=== PATIENT | female | born 1955 | race Caucasian/White ===

== ENCOUNTER 2019-01-28 20:40 | Inpatient (IN) | payer BC, OTHER ==
[~2019-01-28] VITALS: Ht 157.5 cm; Wt 86.7 kg
--- OUTSIDE RECORDS SUMMARY | 2019-01-28 20:44 | XMS REPORT ---
Author Author MARIYA JORDAN Organization e[employer] Address Unknown Phone Unavailable Care Team Providers Care City Carrier Name Role Phone MARIYA JORDAN CP Unavailable Allergies No Known Allergies Problems Problem Type Condition ICD-9 Code Onset Dates Condition Status Problem Dysuria 788.1 Active Problem Hypertension 401.9 Active Problem Well woman exam with routine gynecological exam V72.31 Active Assessment Vaginal itching 698.1 Active Problem Diabetes type 2, uncontrolled 250.02 Active Problem Hyperlipidemia 272.4 Active Medications Medication Code System Code Instructions Start Date End Date Status Dosage Nystatin [facility] [address]-12 [id number] UNIT/GM Externally Twice a day Apr 20, 2015 1 application to affected area Results No Known Results Summary Purpose eClinicalWorks Submission
--- OUTSIDE RECORDS SUMMARY | 2019-01-28 20:44 | XMS REPORT ---
Author Author MARIYA JORDAN Organization [employer] Address Unknown Phone Unavailable Care Team Providers Care Heel Sander Rubber Name Role Phone MARIYA JORDAN CP Unavailable Allergies No Known Allergies Problems Problem Type Condition ICD-9 Code Onset Dates Condition Status Problem Dysuria 788.1 Active Problem Hypertension 401.9 Active Problem Well woman exam with routine gynecological exam V72.31 Active Problem Diabetes type 2, uncontrolled 250.02 Active Problem Hyperlipidemia 272.4 Active Medications No Known Medications Results No Known Results Summary Purpose eClinicalWorks Submission
--- OUTSIDE RECORDS SUMMARY | 2019-01-28 20:44 | XMS REPORT ---
Author Author MARIYA JORDAN [facility] eClinicalWorks Address Unknown Phone Unavailable Care Team Providers Care Com Writer Name Role Phone MARIYA JORDAN CP Unavailable Allergies, Adverse Reactions, Alerts Substance Reaction Event Type Sulfamethoxazole-Trimethoprim Info Not Available Drug Allergy Problems Problem Type Condition ICD-9 Code Onset Dates Condition Status Assessment Diabetes type 2, uncontrolled 250.02 Active Assessment Well woman exam with routine gynecological exam V72.31 Active Problem Dysuria 788.1 Active Problem Hypertension 401.9 Active Problem Well woman exam with routine gynecological exam V72.31 Active Assessment Hypertension 401.9 Active Assessment Hyperlipidemia 272.4 Active Problem Diabetes type 2, uncontrolled 250.02 Active Problem Hyperlipidemia 272.4 Active Medications No Known Medications Procedures Procedure Coding System Code Date SPECIMEN HANDLING CPT-4 81928 Apr 15, 2015 TRICHOMONAS VAGIN, DIR PROBE CPT-4 95123 Apr 15, 2015 GLYCATED HEMOGLOBIN TEST CPT-4 23918 Apr 15, 2015 CULTURE, BACTERIA, OTHER CPT-4 99560 Apr 15, 2015 No Charge CPT-4 56841 Apr 15, 2015 Office Visit, Est Pt., Level 4 CPT-4 38683 Apr 15, 2015 Vital Signs Date/Time: Apr 15, 2015 Temperature 97.4 F Weight 169.8 lbs Height 62 in BMI 31.05 Index Blood Pressure Diastolic 68 mmHg Blood Pressure Systolic 140 mmHg Cardiac Monitoring Heart Rate 100 bpm Results Name Result Date Reference Range Unit Abnormality Flag A1C (IN HOUSE) Summary Purpose eClinicalWorks Submission
--- OUTSIDE RECORDS SUMMARY | 2019-01-28 20:44 | XMS REPORT ---
Author MARIYA Harris Organization [employer] Address Unknown Phone Unavailable Care Team Providers Care Shoe Reconditioner Name Role Phone MARIYA JORDAN CP Unavailable Allergies No Known Allergies Problems Problem Type Condition ICD-9 Code Onset Dates Condition Status Problem Hypertension 401.9 Active Problem Diabetes type 2, uncontrolled 250.02 Active Problem Dysuria 788.1 Active Problem Hyperlipidemia 272.4 Active Medications Medication Code System Code Instructions Start Date End Date Status Dosage Diflucan [facility] [address]-38 150 MG Orally Mar 27, 2015 1 tablet Results No Known Results Summary Purpose eClinicalWorks Submission
--- OUTSIDE RECORDS SUMMARY | 2019-01-28 20:44 | XMS REPORT ---
Author MARIYA Harris Organization [employer] Address Unknown Phone Unavailable Care Team Providers Care Reinsurance Claims Analyst Name Role Phone MARIYA JORDAN CP Unavailable Allergies No Known Allergies Problems Problem Type Condition Code Onset Dates Condition Status Problem Dysuria 788.1 Active Problem Hypertension 401.9 Active Problem Well woman exam with routine gynecological exam V72.31 Active Problem Diabetes type 2, uncontrolled 250.02 Active Problem Hyperlipidemia 272.4 Active Medications No Known Medications Results No Known Results Summary Purpose eClinicalWorks Submission
--- OUTSIDE RECORDS SUMMARY | 2019-01-28 20:44 | XMS REPORT ---
Author MARIYA Harris Organization [employer] Address Unknown Phone Unavailable Care Team Providers Care Fisher Pound Net Or Trap Name Role Phone MARIYA JORDAN CP Unavailable Allergies No Known Allergies Problems Problem Type Condition ICD-9 Code Onset Dates Condition Status Problem Hypertension 401.9 Active Problem Diabetes type 2, uncontrolled 250.02 Active Problem Dysuria 788.1 Active Problem Hyperlipidemia 272.4 Active Medications Medication Code System Code Instructions Start Date End Date Status Dosage Diflucan [facility] [address]-01 150 MG Orally every 72 hours Mar 27, 2015 1 tablet Results No Known Results Summary Purpose eClinicalWorks Submission
--- OUTSIDE RECORDS SUMMARY | 2019-01-28 20:45 | XMS REPORT ---
Author Author MARIYA JORDAN [facility] eClinicalWorks Address Unknown Phone Unavailable Care Team Providers Care Aviation Support Equipment Repairer Name Role Phone MARIYA JORDAN CP Unavailable Allergies No Known Allergies Problems Problem Type Condition Code Onset Dates Condition Status Problem Dysuria 788.1 Active Problem Hypertension 401.9 Active Problem Well woman exam with routine gynecological exam V72.31 Active Problem Diabetes type 2, uncontrolled 250.02 Active Problem Hyperlipidemia 272.4 Active Medications Medication Code System Code Instructions Start Date End Date Status Dosage GlyBURIDE [facility] [address]-92 5 MG Orally Once a day Apr 21, 2015 1 tablet Results No Known Results Summary Purpose eClinicalWorks Submission
--- OUTSIDE RECORDS SUMMARY | 2019-01-28 20:45 | XMS REPORT ---
Author Author MARIYA JORDAN [facility] eClinicalWorks Address Unknown Phone Unavailable Care Team Providers Care Lanolin Plant Operator Name Role Phone MARIYA JORDAN CP Unavailable Allergies No Known Allergies Problems Problem Type Condition ICD-9 Code Onset Dates Condition Status Problem Hypertension 401.9 Active Problem Diabetes type 2, uncontrolled 250.02 Active Problem Dysuria 788.1 Active Problem Hyperlipidemia 272.4 Active Medications No Known Medications Results No Known Results Summary Purpose eClinicalWorks Submission
--- NOTE | 2019-01-28 21:00 | NUR ---
Pt amb to restroom, with ed staff stand by assist, to obtain urine sample.
--- NOTE | 2019-01-28 21:13 | NUR ---
Pt reports she has a cyst noted to lt buttocks which is now bleeding. Pt reports for "past several days" it has been oozing and is now bleeding. Wound culture obtained by Dr. Hatch @[phone].
[2019-01-28 21:17] LABS: BILIRUBIN,URINE NEGATIVE (NEGATIVE); CLARITY,URINE VERY CLOUDY; COLOR,URINE YELLOW; GLUCOSE, URINE (UA) NEGATIVE (NEGATIVE); KETONES,URINE NEGATIVE (NEGATIVE); LEUKOCYTE ESTERASE ,URINE 3+ (NEGATIVE); NITRITE,URINE NEGATIVE (NEGATIVE); PH,URINE 5 (5-9); PROTEIN,URINE 2+ (NEGATIVE); UROBILINOGEN,URINE NORMAL (NORMAL)
[2019-01-28] MEDS ORDERED: NS IV 500 ML 500 ML IV ONE (21:19)
[2019-01-28 21:21] LABS: BASOPHILS % (AUTO) 0 % (0-10); EOSINOPHILS # (AUTO) 0.4 10^3/uL (0.0-0.3); EOSINOPHILS % (AUTO) 6 % (0-10); HEMATOCRIT 40 % (35-52); LYMPHOCYTES # (AUTO) 1.5 X 10^3 (1.0-4.0); LYMPHOCYTES % (AUTO) 20 % (12-44); MEAN CORPUSCULAR HEMOGLOBIN 31 PG (25-34); MEAN CORPUSCULAR HGB CONC 33 G/DL (32-36); MEAN CORPUSCULAR VOLUME 94 FL (80-99); MEAN PLATELET VOLUME 10.2 FL (7.4-10.4); MONOCYTES # (AUTO) 0.4 X 10^3 (0.0-1.0); MONOCYTES % (AUTO) 6 % (0-12); NEUTROPHILS # (AUTO) 5.1 X 10^3 (1.8-7.8); NEUTROPHILS % (AUTO) 68 % (42-75); PLATELET COUNT 245 10^3/uL (130-400); RED CELL DISTRIBUTION WIDTH 13.3 % (10.0-14.5); WHITE BLOOD COUNT 7.5 10^3/uL (4.3-11.0)
[2019-01-28 21:24] LABS: BACTERIA,URINE LARGE /HPF; RBC,URINE 0-2 /HPF; WBC,URINE 25-50 /HPF
[2019-01-28] MEDS ORDERED: meTOproloL SUCCINATE 50 MG (TOPROL XL) TAB PO SCH (21:30)
[2019-01-28] MEDS ORDERED: LORazepam INJ 2 MG/ML (ATIVAN) VIAL IVP ONE (21:30)
[2019-01-28 21:35] LABS: FIBRIN DEGRADATION PRODUCTS 1.02 UG/ML (0.00-0.49); PROTHROMBIN TIME PATIENT 13.1 SEC (12.2-14.7)
[2019-01-28 21:41] LABS: ALANINE AMINOTRANSFERASE 28 U/L (0-55); ALBUMIN 4.2 GM/DL (3.2-4.5); ALKALINE PHOSPHATASE 131 U/L (40-136); BILIRUBIN,TOTAL 0.6 MG/DL (0.1-1.0); BUN/CREATININE RATIO 21; CALCIUM 9.8 MG/DL (8.5-10.1); CARBON DIOXIDE 26 MMOL/L (21-32); CHLORIDE 100 MMOL/L (98-107); CREATININE SERUM 0.91 MG/DL (0.60-1.30); GFR ESTIMATED > 60; GLUCOSE 227 MG/DL (70-105); POTASSIUM 4.1 MMOL/L (3.6-5.0); SODIUM 138 MMOL/L (135-145); TOTAL PROTEIN 8.6 GM/DL (6.4-8.2)
--- NOTE | 2019-01-28 21:49 | Diagnostic Imaging Report ---
PROCEDURE: CT head wo r/o stroke. TECHNIQUE: Multiple contiguous axial images were obtained through the brain without the use of intravenous contrast. Auto Exposure Controls were utilized during the CT exam to meet ALARA standards for radiation dose reduction. INDICATION: Neurological symptoms that began today. Word finding difficulty. COMPARISON: None FINDINGS: The ventricles and cortical sulci are prominent. There is no midline shift or mass effect identified. No acute intracranial hemorrhage is seen. Areas of decreased attenuation are seen in the subcortical and periventricular white matter. These likely represent chronic microvascular disease. No CT evidence of acute territorial ischemia is seen. The calvarium is intact. The paranasal sinuses appear clear. IMPRESSION: 1. No acute intracranial hemorrhage. No CT evidence of acute territorial ischemia. 2. Generalized parenchymal volume loss and findings of chronic microvascular disease. Findings discussed with SANDRA ZULUAGA MD by Dr. Celeste, on 01/28/2019 9:43 PM. Dictated by: Dictated on workstation # [id number]
--- NOTE | 2019-01-28 21:51 | Diagnostic Imaging Report ---
PATIENT HISTORY: Neurological symptoms, word finding difficulty. TECHNIQUE: Single frontal view of the chest COMPARISON: None FINDINGS: Lung volumes are normal. There are linear opacities in the left lung base which likely represent atelectasis. No pleural effusion or pneumothorax is seen. The cardiac silhouette is normal in size. IMPRESSION: Linear opacities in the left lung base likely represent atelectasis. Dictated by: Dictated on workstation # [id number]
--- NOTE | 2019-01-28 21:56 | ED Neurological Problem ---
General Chief Complaint: Neurological Problems Stated Complaint: ALTERED MENTAL STATUS Nursing Triage Note: Pt amb to room #7 w/o difficulty. a&ox4. c/o neurological symptoms that began 01/28/19. Pt states, I can not connect with whats going on, and sometimes I can not get my words out." Pt noted to be emotional and hypertensive with initial bp 220/96. Initial NIH score 0. Nursing Sepsis Screen: No Definite Risk Source: patient Exam Limitations: no limitations History of Present Illness Date Seen by Provider: Jan 28, 2019 Time Seen by Provider: 20:50 Initial Comments Here with report of difficulty thinking over the last 3 days. Notes that her blood pressure is elevated. States that she is having trouble getting her words out and thinking straight. No focal deficit otherwise. Does arrive hypertensive and anxious. Does have history of migraines seizures but states that that is not what happened on this event. Does admit to not drinking fluids well and drinks quite a bit of black tea. Denies fevers. Denies nausea or vomiting. Denies chest pain or breathing problems. Does have a wound on her left buttock that is chronic and has been leaking some bloody fluid for the past couple of months. Before that it would drain intermittently purulent fluid. She has not had that checked out because of cost. Her primary care doctor wanted her to have that checked by a surgeon to have it removed but she states that she couldn't do it b ecause she could not afford it. Timing/Duration: waxing and waning, other (3 days) Severity: moderate Associated Symptoms: confusion, fatigue; No fever/chills, No nausea/vomiting, No slurred speech, No vision changes, No weakness Allergies and Home Medications Allergies Coded Allergies: No Allergy Information Available (Unverified , 01/28/19) Patient Home Medication List Home Medication List Reviewed: Yes Review of Systems Review of Systems Constitutional: see HPI; No chills, No fever; malaise, weakness Eyes: No Symptoms Reported Ears, Nose, Mouth, Throat: no symptoms reported Respiratory: No cough, No short of breath Cardiovascular: No chest pain, No edema, No palpitations Gastrointestinal: No abdominal pain, No nausea, No vomiting Genitourinary: decreased output; No dysuria Musculoskeletal: no symptoms reported Skin: no symptoms reported Psychiatric/Neurological: See HPI, Anxiety, Cognitive Dysfunction; Denies Headache; Weakness Endocrine: No Symptoms Reported All Other Systems Reviewed Negative Unless Noted: Yes Past Bvoadyl-Doxkem-Nyyhzd Hx Past Med/Social Hx: Reviewed Nursing Past Med/Soc Hx Patient Social History Alcohol Use: Denies Use Recreational Drug Use: No Smoking Status: Former Smoker Type Used: Cigarettes Former Smoker, Quit: Aug 07, 2012 2nd Hand Smoke Exposure: No Recent Foreign Travel: No Contact w/Someone Who Travel: No Recent Infectious Disease Expo: No Recent Hopitalizations: No Seasonal Allergies Seasonal Allergies: No Past Medical History Surgeries: No Respiratory: No Cardiac: Yes Hypertension Neurological: Yes ("Migraine seizures") Headaches /Migraines Genitourinary: No Gastrointestinal: No Musculoskeletal: No Endocrine: Yes Diabetes, Non-Insulin dep Are Your Blood Sugars Over 250: No HEENT: Yes Integumentary: No Family Medical History Reviewed Nursing Family Hx No Pertinent Family Hx Physical Exam Vital Signs Vital Signs - First Documented 01/28/19 20:44 Temp 96.5 Pulse 116 Resp 20 B/P (MAP) 220/96 (137) Pulse Ox 95 O2 Delivery Room Air Capillary Refill : Less Than 3 Seconds Height, Weight, BMI Height: 5'4.00" Weight: 200lbs. oz. 90.867796fn; BMI Method:Stated General Appearance: WD/WN, mild distress (anxious) HEENT: PERRL/EOMI, pharynx normal Neck: full range of motion, supple Respiratory: lungs clear, normal breath sounds Cardiovascular: no murmur, tachycardia Peripheral Pulses: 2+ Dorsalis Pedis (R), 2+ Left Dors-Pedis (L), 2+ Radial Pulses (R), 2+ Radial Pulses (L) Gastrointestinal: non tender, soft Back: normal inspection, no CVA tenderness, no vertebral tenderness Extremities: normal range of motion, non-tender, normal inspection Neurologic/Psychiatric: application designer II-XII nml as tested, no motor/sensory deficits, alert, normal mood/affect, oriented x 3 Crainal Nerves: normal hearing, normal speech, PERRL Coordination/Gait: normal finger to nose Motor/Sensory: no motor deficit, no sensory deficit, no pronator drift Skin: warm/dry, other (small weeping wound to the mid left buttock near midline that is draining serosanguineous drainage.) Stroke NIH Stroke Scale Assessment Level of Consciousness: 0=Alert (0), Level of Consciousness-Questions: 0=Answers both month/age (0), LOC Commands: 0=Performs both tasks (0), Visual Webster: 0=No visual loss (0), Facial Movement (Facial Paresis): 0=Normal symmetrical mnt (0), Motor Function-Arms Right: 0=No drift (0), Motor Function-Arms Left: 0=No drift (0), Motor Function-Legs Right: 0=No drift (0), Motor Function-Legs Left: 0=No drift (0), Limb Ataxia: 0=Absent (0), Sensory: 0=Normal:no loss (0), Best Language: 0=No aphasia (0), Dysarthria: 0=Normal (0), Extinction & Inattention: 0=No abnormality (0), Total: Focused Exam Lactate Level 01/28/19 21:57: Lactic Acid Level 2.21*H Lactic Acid Level Laboratory Tests Test 01/28/19 21:57 Lactic Acid Level 2.21 MMOL/L (0.50-2.00) *H Progress/Results/Core Measures Results/Orders Lab Results Laboratory Tests Test 01/28/19 20:49 01/28/19 20:50 01/28/19 21:00 01/28/19 21:57 Range/Units Glucometer 210 H 70-110 MG/DL White Blood Count 7.5 4.3-11.0 10^3/uL Red Blood Count 4.25 L 4.35-5.85 10^6/uL Hemoglobin 13.0 11.5-16.0 G/DL Hematocrit 40 35-52 % Mean Corpuscular Volume 94 80-99 FL Mean Corpuscular Hemoglobin 31 25-34 PG Mean Corpuscular Hemoglobin Concent 33 32-36 G/DL Red Cell Distribution Width 13.3 10.0-14.5 % Platelet Count 245 130-400 10^3/uL Mean Platelet Volume 10.2 7.4-10.4 FL Neutrophils (%) (Auto) 68 42-75 % Lymphocytes (%) (Auto) 20 12-44 % Monocytes (%) (Auto) 6 0-12 % Eosinophils (%) (Auto) 6 0-10 % Basophils (%) (Auto) 0 0-10 % Neutrophils # (Auto) 5.1 1.8-7.8 X 10^3 Lymphocytes # (Auto) 1.5 1.0-4.0 X 10^3 Monocytes # (Auto) 0.4 0.0-1.0 X 10^3 Eosinophils # (Auto) 0.4 H 0.0-0.3 10^3/uL Basophils # (Auto) 0.0 0.0-0.1 10^3/uL Prothrombin Time 13.1 12.2-14.7 SEC INR Comment 1.0 0.8-1.4 Activated Partial Thromboplast Time 26 24-35 SEC D-Dimer 1.02 H 0.00-0.49 UG/ML Sodium Level 138 135-145 MMOL/L Potassium Level 4.1 3.6-5.0 MMOL/L Chloride Level 100 98-107 MMOL/L Carbon Dioxide Level 26 21-32 MMOL/L Anion Gap 12 5-14 MMOL/L Blood Urea Nitrogen 19 H 7-18 MG/DL Creatinine 0.91 0.60-1.30 MG/DL Estimat Glomerular Filtration Rate > 60 BUN/Creatinine Ratio 21 Glucose Level 227 H 70-105 MG/DL Calcium Level 9.8 8.5-10.1 MG/DL Corrected Calcium 9.6 8.5-10.1 MG/DL Total Bilirubin 0.6 0.1-1.0 MG/DL Aspartate Amino Transf (AST/SGOT) 21 5-34 U/L Alanine Aminotransferase (ALT/SGPT) 28 0-55 U/L Alkaline Phosphatase 131 40-136 U/L Troponin I < 0.028 <0.028 NG/ML Total Protein 8.6 H 6.4-8.2 GM/DL Albumin 4.2 3.2-4.5 GM/DL Urine Color YELLOW Urine Clarity VERY CLOUDY H Urine pH 5 5-9 Urine Specific Sandy 1.020 1.016-1.022 Urine Protein 2+ H NEGATIVE Urine Glucose (UA) NEGATIVE NEGATIVE Urine Ketones NEGATIVE NEGATIVE Urine Nitrite NEGATIVE NEGATIVE Urine Bilirubin NEGATIVE NEGATIVE Urine Urobilinogen NORMAL NORMAL MG/DL Urine Leukocyte Esterase 3+ H NEGATIVE Urine RBC (Auto) 3+ H NEGATIVE Urine RBC 0-2 /HPF Urine WBC 25-50 H /HPF Urine Squamous Epithelial Cells 5-10 /HPF Urine Crystals NONE /LPF Urine Bacteria LARGE H /HPF Urine Casts NONE /LPF Urine Mucus NEGATIVE /LPF Urine Culture Indicated YES Lactic Acid Level 2.21 *H 0.50-2.00 MMOL/L My Orders Orders - SANDRA ZULUAGA MD Cbc With Automated Diff (01/28/19 20:53) Protime With Inr (01/28/19 20:53) Partial Thromboplastin Time (01/28/19 20:53) Comprehensive Metabolic Panel (01/28/19 20:53) Fibrin Degradation Products (01/28/19 20:53) Troponin I (01/28/19 20:53) Ua Culture If Indicated (01/28/19 20:53) Chest 1 View, Ap/Pa Only (01/28/19 20:53) Ekg Tracing (01/28/19 20:53) Nothing By Mouth (01/29/19 Breakfast) Accucheck Stat ONCE (01/28/19 20:53) Ed Iv/Invasive Line Start (01/28/19 20:53) Vital Signs Stroke Patient Q15M (01/28/19 20:53) Ct Head Wo-R/O Stroke (01/28/19 20:53) O2 (01/28/19 20:53) Intake & Output 06,14,22 (01/28/19 20:53) Monitor-Rhythm Ecg Trace Only (01/28/19 20:53) Dysphagia Screening Tool (01/28/19 20:53) Lipid Panel (01/29/19 06:00) Lorazepam Injection (Ativan Injection) (01/28/19 21:30) Metoprolol Succinate (Xl) Tab (Toprol Xl (01/28/19 21:30) Ed Iv/Invasive Line Start (01/28/19 21:19) Ns Iv 500 Ml (Sodium Chloride 0.9%) (01/28/19 21:19) Lactic Acid Analyzer (01/28/19:19) Blood Culture (01/28/19:19) Wound Culture (01/28/19 21:19) Urine Culture (01/28/19 21:00) Tick Panel With Lyme Eia (01/28/19 22:03) Ceftriaxone For Iv Use (Rocephin For I (01/28/19 22:30) Medications Given in ED Current Medications Medications Dose Ordered Sig/Idania Route Start Time Stop Time Status Last Admin Dose Admin Lorazepam 0.5 mg ONCE ONCE IVP 01/28/19 21:30 01/28/19 21:31 DC 01/28/19 21:29 0.5 MG Sodium Chloride 500 ml @ 0 mls/hr Q0M ONCE IV 01/28/19 21:19 01/28/19 21:22 DC 01/28/19 21:40 0 MLS/HR Vital Signs/I&O 01/28/19 20:44 Temp 96.5 Pulse 116 Resp 20 B/P (MAP) 220/96 (137) Pulse Ox 95 O2 Delivery Room Air Blood Pressure Mean: 137 FSBG Bedside Testing Finger Stick Blood Glucose: 210 Blood Glucose Action Taken: Notified Dr. Zuluaga Progress Progress Note : Progress Note Seen and evaluated. Stroke screen and protocol initiated. 0 on stroke scale. IV, labs, EKG, chest x-ray, UA, blood cultures, lactic acid, wound culture ordered. Normal saline 500 mL bolus. Toprol-XL 50 mg by mouth as well as Ativan 0.5 mg IV ordered. Monitor patient. 2222: Symptoms have improved with respect to anxiousness. Blood pressure is starting to trend down. Heart rate in the 90s now. She is not short of breath and does not have chest pain. D-dimer was slightly elevated and I believe this may be related more to the buttock abscess than to pulmonary embolism. She does have elevated lactic acid that is mild. She did receive the bolus of normal saline and we will continue that inpatient. She is not in severe sepsis or septic shock and does not require high-volume fluid resuscitation. Rocephin 1 g IV ordered. I did discuss the case with Dr. Vizcarra and she accepts patient for admission, inpatient status. Given that she has the abscess, I will have Dr. Livingston consult in the morning to evaluate that for which the patient was appreciative. Admit, inpatient status. Patient and family agree with plan. Initial ECG Impression Date: Jan 28, 2019 Initial ECG Impression Time: 21:07 Initial ECG Rate: 113 Initial ECG Rhythm: S.Tach Comment Sinus tachycardia with normal axis. No evidence of ST elevation PA. No previous available for comparison. Interpreted by me. Diagnostic Imaging Diagonstic Imaging: Xray Plain Films/CT/US/NM/MRI: chest Comments [facility] [place], [place] NAME: MARINO TREJOJesús Griffith [facility] REC#: [id number] PT STATUS: REG ER : 1955 PHYSICIAN: SANDRA ZULUAGA MD ADMIT DATE: 01/28/19/ER Draft Date of Exam:01/28/19 CHEST 1 VIEW, AP/PA ONLY PATIENT HISTORY: Neurological symptoms, word finding difficulty. TECHNIQUE: Single frontal view of the chest COMPARISON: None FINDINGS: Lung volumes are normal. There are linear opacities in the left lung base which likely represent atelectasis. No pleural effusion or pneumothorax is seen. The cardiac silhouette is normal in size. IMPRESSION: Linear opacities in the left lung base likely represent atelectasis. Dictated on workstation # [id number] Dict: 01/28/192147 Trans: 01/28/192150 [facility] [id number] Interpreted by: JOSS CASTILLO MD Electronically signed by: Roberto Imaging: CT Plain Films/CT/US/NM/MRI: head Comments [facility] [place] [place] NAME: NEL TREJO [facility] REC#: [id number] PT STATUS: REG ER : 1955 PHYSICIAN: SANDRA ZULUAGA MD ADMIT DATE: 01/28/19/ER Draft Date of Exam:01/28/19 CT HEAD WO-R/O STROKE PROCEDURE: CT head wo r/o stroke. TECHNIQUE: Multiple contiguous axial images were obtained through the brain without the use of intravenous contrast. Auto Exposure Controls were utilized during the CT exam to meet ALARA standards for radiation dose reduction. INDICATION: Neurological symptoms that began today. Word finding difficulty. COMPARISON: None FINDINGS: The ventricles and cortical sulci are prominent. There is no midline shift or mass effect identified. No acute intracranial hemorrhage is seen. Areas of decreased attenuation are seen in the subcortical and periventricular white matter. These likely represent chronic microvascular disease. No CT evidence of acute territorial ischemia is seen. The calvarium is intact. The paranasal sinuses appear clear. IMPRESSION: 1. No acute intracranial hemorrhage. No CT evidence of acute territorial ischemia. 2. Generalized parenchymal volume loss and findings of chronic microvascular disease. Findings discussed with SANDRA ZULUAGA MD by Dr. Castillo, on 01/28/2019 9:43 PM. Dictated on workstation # [id number] Dict: 01/28/192139 Trans: 01/28/19 214 [facility] [id number] Interpreted by: JOSS CASTILLO MD Electronically signed by: Departure Communication (Admissions) Time/Spoke to Admitting Phy: 22:22 Impression Primary Impression: Urinary tract infection Qualified Codes: N30.00 - Acute cystitis without hematuria Additional Impressions: Sepsis Qualified Codes: A41.9 - Sepsis, unspecified organism Hypertension Qualified Codes: I10 - Essential (primary) hypertension Abscess of left buttock Disposition: ADMITTED INPATIENT Condition: Stable Admissions Decision to Admit Reason: Admit from ER (General) Decision to Admit/Date: Jan 28, 2019 Time/Decision to Admit Time: 22:22 Departure-Patient Inst. Referrals: MARY WILLETT MD (PCP/Family) Primary Care Physician SANDRA ZULUAGA MD Jan 28, 2019 21:56
[2019-01-28] MEDS ORDERED: cefTRIAXone FOR IV USE 1,000 MG in WATER (STERILE) FOR INJECTION 10 ML IV ONE (22:30)
[2019-01-28 23:43] VITALS: BP 163/73
--- NOTE | 2019-01-28 23:43 | NUR ---
NEL TREJO admitted to room 414-1, with an admitting diagnosis of UTI, SEPSIS, HYPERTENSION, ABCESS OF LEFT BUTTOCK, on 01/28/19 from MD via [, accompanied by STAFF.NEL TREJO introduced to surroundings, call light, bed controls, phone, TV, temperature control, lights, meal times, smoking policy, visitor policy, side rail policy, bathrooms and showers. Patient Rights given to patient in the handbook. NEL TREJO verbalizes understanding that [facility] is not responsible for the loss or damage to any personal effects or valuables that are kept in the patients posession during their hospitalization.
[2019-01-28] MEDS ORDERED: NS IV 1000 ML 1,000 ML IV SCH (23:45)
[2019-01-29 03:32] LABS: BASOPHILS % (AUTO) 0 % (0-10); EOSINOPHILS # (AUTO) 0.4 10^3/uL (0.0-0.3); EOSINOPHILS % (AUTO) 6 % (0-10); HEMATOCRIT 38 % (35-52); HEMOGLOBIN 11.9 G/DL (11.5-16.0); LYMPHOCYTES # (AUTO) 1.6 X 10^3 (1.0-4.0); LYMPHOCYTES % (AUTO) 22 % (12-44); MEAN CORPUSCULAR HEMOGLOBIN 30 PG (25-34); MEAN CORPUSCULAR HGB CONC 32 G/DL (32-36); MEAN CORPUSCULAR VOLUME 95 FL (80-99); MEAN PLATELET VOLUME 9.9 FL (7.4-10.4); MONOCYTES # (AUTO) 0.5 X 10^3 (0.0-1.0); MONOCYTES % (AUTO) 7 % (0-12); NEUTROPHILS # (AUTO) 4.5 X 10^3 (1.8-7.8); NEUTROPHILS % (AUTO) 65 % (42-75); PLATELET COUNT 213 10^3/uL (130-400); RED CELL DISTRIBUTION WIDTH 13.2 % (10.0-14.5); WHITE BLOOD COUNT 6.9 10^3/uL (4.3-11.0)
[2019-01-29 03:52] LABS: ALANINE AMINOTRANSFERASE 24 U/L (0-55); ALBUMIN 3.6 GM/DL (3.2-4.5); ALKALINE PHOSPHATASE 111 U/L (40-136); BILIRUBIN,TOTAL 0.3 MG/DL (0.1-1.0); BUN/CREATININE RATIO 23; CALCIUM 9.1 MG/DL (8.5-10.1); CARBON DIOXIDE 23 MMOL/L (21-32); CHLORIDE 105 MMOL/L (98-107); CHOLESTEROL 236 MG/DL (< 200); CREATININE SERUM 0.79 MG/DL (0.60-1.30); GFR ESTIMATED > 60; GLUCOSE 177 MG/DL (70-105); HDL CHOLESTEROL 34 MG/DL (40-60); POTASSIUM 4.4 MMOL/L (3.6-5.0); SODIUM 138 MMOL/L (135-145); TOTAL PROTEIN 7.2 GM/DL (6.4-8.2); TRIGLYCERIDES 261 MG/DL (<150); VLDL CHOLESTEROL 52 MG/DL (5-40)
[2019-01-29 04:50] VITALS: BP 145/71
[2019-01-29 08:00] VITALS: BP 149/82
[2019-01-29] MEDS ORDERED: meTOproloL SUCCINATE 50 MG (TOPROL XL) TAB PO SCH (09:00)
[2019-01-29] MEDS ORDERED: lisINopril 10 MG (PRINIVIL) TABLET PO SCH (09:00)
[2019-01-29] MEDS ORDERED: METF-399 PO (10:20)
[2019-01-29] MEDS ORDERED: LISI10TA2 PO (10:20)
--- NOTE | 2019-01-29 10:22 | Short Stay Summary ---
History of Present Illness History of Present Illness Reason for visit/HPI 64 yo female came to ER due to on and off confusion, word finding difficulty, non-specific confusional symptoms for a few days. She denies any other symptoms. Has not felt ill and has has no weakness or numbness. She did have a tick on her a week ago Monday that would have been on for about 24 hours at the most and was not engorged. She denies fever, rash, headache, joint pains. Date of Admission Jan 28, 2019 at 22:42 Date of Discharge January 29, 2019 Time Seen by Provider: 10:15 Attending Physician Isra Vizcarra MD Admitting Physician Mary Willett MD Consult Allergies and Home Medications Allergies Coded Allergies: sulfamethoxazole (Verified Allergy, Unknown, 01/29/19) trimethoprim (Verified Allergy, Unknown, 01/29/19) Home Medications Atorvastatin Calcium 20 Mg Tablet, 20 MG PO DAILY Prescribed by: ISRA VIZCARRA on 01/29/19 1203 Cefdinir 300 Mg Capsule, 300 MG PO BID Prescribed by: ISRA VIZCARRA on 01/29/19 1203 Ibuprofen 200 Mg Tablet, 400 MG PO DAILY PRN for HEADACHE, (Reported) Lisinopril 10 Mg Tablet, 10 MG PO DAILY, (Reported) Metformin HCl 1,000 Mg Tablet, 1,000 MG PO BID, (Reported) Patient Home Medication List Home Medication List Reviewed: Yes Past Mogjzmt-Ghwanm-Edeijv Hx Patient Social History Alcohol Use: Denies Use Recreational Drug Use: No Smoking Status: Former Smoker Former Smoker, Quit: Aug 07, 2012 Type Used: Cigarettes 2nd Hand Smoke Exposure: No Recent Foreign Travel: No Contact w/other who traveled: No Recent Hopitalizations: No Recent Infectious Disease Expo: No Seasonal Allergies Seasonal Allergies: No Surgeries No Respiratory No Cardiovascular Yes Hypertension Neurological Yes ("Migraine seizures") Headaches /Migraines Genitourinary No Gastrointestinal No Musculoskeletal No Endocrine History of Endocrine Disorders: Yes Endocrine Disorders: Diabetes, Non-Insulin dep Are Your Blood Sugars Over 250: No HEENT History of HEENT Disorders: Yes Integumentary History of Skin or Integumenta: No Family Medical History Significant Family History: COPD, Diabetes Review of Systems Constitutional: No fever EENTM: nose congestion Respiratory: cough Cardiovascular: No chest pain Gastrointestinal: No abdominal pain, No constipation, No diarrhea, No nausea, No vomiting Genitourinary: No dysuria Musculoskeletal: No joint pain Skin: No rash Psychiatric/Neurological: See HPI Physical Exam Vital Signs Vital Signs - First Documented 01/28/19 01/29/19 20:44 03:40 Temp 96.5 Pulse 116 Resp 20 B/P (MAP) 220/96 (137) Pulse Ox 95 O2 Delivery Room Air FiO2 21 Capillary Refill : Less Than 3 Seconds Height, Weight, BMI Height: 5'2.00" Weight: 191lbs. 4.0oz. [id number]; 35.0 BMI Method:Stated General Appearance: No Apparent Distress, WD/WN Eyes: Bilateral Eye PERRL, Bilateral Eye EOMI HEENT: PERRL/EOMI; No Tonsillar Exudate Respiratory: Lungs Clear, Normal Breath Sounds Cardiovascular: Regular Rate, Rhythm, No Murmur Gastrointestinal: Normal Bowel Sounds, Non Tender, Soft Extremity: No Pedal Edema Neurologic/Psychiatric: Alert, Oriented x3, Normal Mood/Affect, operations professional II-XII Norm as Tested; No Abnormal Cerebellar Tests Skin: Normal Color, Warm/Dry Clinical Quality Measures DVT/VTE Risk/Contraindication: Risk Factor Score Per Nursin RFS Level Per Nursing on Admit: 4+=Very High Short Stay Diagnosis Discharge Diagnosis-Short Stay Admission Diagnosis: Confusion Urinary Tract infection Tick bite Draining wound on buttock Final Discharge Diagnosis: Confusion- improved with IVF and antibiotics, suspected to be related to UTI. CT head unremarkable, stroke work-up negative. UTI- discharged with cefdinir as she had good response to ceftriaxone and has allergy to Bactrim and had confusion with unknown abx in past but can be side effect of macrobid and cipro. Culture pending at d/c. Tick bite- do not suspect tick borne illness, but tick panel was pending at time of d/c. Draining wound on buttock- no clear evidence of infection, surgery consulted, but is chronic issue, can be addressed outpatient and patient requesting d/c. HLD- was to have started med a year ago and has not, will send script for atorvastatin Conclusion Labs Laboratory Tests 01/28/19 20:49: Glucometer 210H 01/28/19 20:50: White Blood Count 7.5, Red Blood Count 4.25L, Hemoglobin 13.0, Hematocrit 40, Mean Corpuscular Volume 94, Mean Corpuscular Hemoglobin 31, Mean Corpuscular Hemoglobin Concent 33, Red Cell Distribution Width 13.3, Platelet Count 245, Mean Platelet Volume 10.2, Neutrophils (%) (Auto) 68, Lymphocytes (%) (Auto) 20, Monocytes (%) (Auto) 6, Eosinophils (%) (Auto) 6, Basophils (%) (Auto) 0, Neutrophils # (Auto) 5.1, Lymphocytes # (Auto) 1.5, Monocytes # (Auto) 0.4, Eosinophils # (Auto) 0.4H, Basophils # (Auto) 0.0, Prothrombin Time 13.1, INR Comment 1.0, Activated Partial Thromboplast Time 26, D-Dimer 1.02H, Sodium Level 138, Potassium Level 4.1, Chloride Level 100, Carbon Dioxide Level 26, Anion Gap 12, Blood Urea Nitrogen 19H, Creatinine 0.91, Estimat Glomerular Filtration Rate > 60, BUN/Creatinine Ratio 21, Glucose Level 227H, Calcium Level 9.8, Corrected Calcium 9.6, Total Bilirubin 0.6, Aspartate Amino Transf (AST/SGOT) 21, Alanine Aminotransferase (ALT/SGPT) 28, Alkaline Phosphatase 131, Troponin I < 0.028, Total Protein 8.6H, Albumin 4.2 01/28/19 21:00: Urine Color YELLOW, Urine Clarity VERY CLOUDYH, Urine pH 5, Urine Specific [place] 1.020, Urine Protein 2+H, Urine Glucose (UA) NEGATIVE, Urine Ketones NEGATIVE, Urine Nitrite NEGATIVE, Urine Bilirubin NEGATIVE, Urine Urobilinogen NORMAL, Urine Leukocyte Esterase 3+H, Urine RBC (Auto) 3+H, Urine RBC 0-2, Urine WBC 25-50H, Urine Squamous Epithelial Cells 5-10, Urine Crystals NONE, Urine Bacteria LARGEH, Urine Casts NONE, Urine Mucus NEGATIVE, Urine Culture Indicated YES 01/28/19 21:57: Lactic Acid Level 2.21*H 01/28/19 23:45: Lactic Acid Level 2.33*H 01/29/19 03:25: Lactic Acid Level 1.93, White Blood Count 6.9, Red Blood Count 3.95L, Hemoglobin 11.9, Hematocrit 38, Mean Corpuscular Volume 95, Mean Corpuscular Hemoglobin 30, Mean Corpuscular Hemoglobin Concent 32, Red Cell Distribution Width 13.2, Platelet Count 213, Mean Platelet Volume 9.9, Neutrophils (%) (Auto) 65, Lymphocytes (%) (Auto) 22, Monocytes (%) (Auto) 7, Eosinophils (%) (Auto) 6, Ba sophils (%) (Auto) 0, Neutrophils # (Auto) 4.5, Lymphocytes # (Auto) 1.6, Monocytes # (Auto) 0.5, Eosinophils # (Auto) 0.4H, Basophils # (Auto) 0.0, Sodium Level 138, Potassium Level 4.4, Chloride Level 105, Carbon Dioxide Level 23, Anion Gap 10, Blood Urea Nitrogen 18, Creatinine 0.79, Estimat Glomerular Filtration Rate > 60, BUN/Creatinine Ratio 23, Glucose Level 177H, Calcium Level 9.1, Corrected Calcium 9.4, Total Bilirubin 0.3, Aspartate Amino Transf (AST/SGOT) 20, Alanine Aminotransferase (ALT/SGPT) 24, Alkaline Phosphatase 111, Total Protein 7.2, Albumin 3.6, Triglycerides Level 261H, Cholesterol Level 236H , LDL Cholesterol Direct 171H, VLDL Cholesterol 52H, HDL Cholesterol 34L Conclusion/Plan See final discharge diagnosis Copy Copies To 1: MARY WILLETT MD, BETHANY N MD Jan 29, 2019 10:21
[2019-01-29] MEDS ORDERED: IBUP-2055 PO (10:36)
--- NOTE | 2019-01-29 10:39 | NUR ---
SPOKE WITH PATIENT, SHE WAS ABLE TO VERIFY FROM THE EXTERNAL MED HISTORY. OTC MEDICATIONS: IBUPROFEN 400MG AT ONSET OF HEADACHE NEEDED.
[2019-01-29 12:00] VITALS: BP 174/84
[2019-01-29] MEDS ORDERED: ATOR20TA66 PO (12:03)
[2019-01-29] MEDS ORDERED: CEFD300C3 PO (12:03)
--- NOTE | 2019-01-29 14:00 | NUR ---
CM/ARNIE spoke with the patient for discharge needs. She had expressed to the RN concerns of her hospital bill even with having insurance. Provided her with an application for Fin. Assistance. She stated that she would be able to order picker her medications and did not feel she had any other discharge needs.
--- NOTE | 2019-01-29 15:57 | Consultation (Surgery) ---
History of Present Illness History of Present Illness Patient Consulted On(deb/time) 01/29/19 15:51 Date Seen by Provider: Jan 29, 2019 Time Seen by Provider: 12:40 History of Present Illness consult requested by Dr. Vizcarra for left buttock abscess. Patient is a 64 year old female who wasn't feeling well last few days. She wasn't thinking well and has history of migraines and seizures. Patient has had a cyst on left buttock for several years she states. Over last couple months began having cyst enlarging and more sore. Began draining last few days, and then feeling better. Time has made it worse, and it draining did make it some better. She states her pcp was arranging for surgical evaluation. Patient states currently she's doing well she's hoping to go home. Denies n/v fever sweats chills shortness of breath or chest pain at this time. Allergies and Home Medications Allergies Coded Allergies: sulfamethoxazole (Verified Allergy, Unknown, 01/29/19) trimethoprim (Verified Allergy, Unknown, 01/29/19) Home Medications Atorvastatin Calcium 20 Mg Tablet, 20 MG PO DAILY Prescribed by: ISRA VIZCARRA on 01/29/19 1203 Cefdinir 300 Mg Capsule, 300 MG PO BID Prescribed by: ISRA VIZCARRA on 01/29/19 1203 Ibuprofen 200 Mg Tablet, 400 MG PO DAILY PRN for HEADACHE, (Reported) Lisinopril 10 Mg Tablet, 10 MG PO DAILY, (Reported) Metformin HCl 1,000 Mg Tablet, 1,000 MG PO BID, (Reported) Patient Home Medication List Home Medication List Reviewed: Yes Past Xpbxkdy-Xhszcb-Bemvss Hx Patient Social History Alcohol Use: Denies Use Recreational Drug Use: No Smoking Status: Former Smoker Former Smoker, Quit: Aug 07, 2012 Type Used: Cigarettes 2nd Hand Smoke Exposure: No Recent Foreign Travel: No Contact w/Someone Who Travel: No Recent Infectious Disease Expo: No Recent Hopitalizations: No Seasonal Allergies Seasonal Allergies: No Surgeries History of Surgeries: No Respiratory History of Respiratory Disorde: No Cardiovascular History of Cardiac Disorders: Yes Cardiac Disorders: Hypertension Neurological History of Neurological Disord: Yes ("Migraine seizures") Neurological Disorders: Headaches /Migraines Genitourinary History of Genitourinary Disor: No Gastrointestinal History of Gastrointestinal Di: No Musculoskeletal History of Musculoskeletal Dis: No Endocrine History of Endocrine Disorders: Yes Endocrine Disorders: Diabetes, Non-Insulin dep HEENT History of HEENT Disorders: Yes Integumentary History of Skin or Integumenta: No Family Medical History Significant Family History: COPD, Diabetes Review of Systems-General Constitutional: see HPI EENTM: no symptoms reported Respiratory: no symptoms reported Gastrointestinal: no symptoms reported Genitourinary: no symptoms reported Musculoskeletal: no symptoms reported Skin: see HPI Psychiatric/Neurological: No Symptoms Reported Physical Exam-General Problems Physical Exam Vital Signs Vital Signs - First Documented 01/28/19 01/29/19 20:44 03:40 Temp 96.5 Pulse 116 Resp 20 B/P (MAP) 220/96 (137) Pulse Ox 95 O2 Delivery Room Air FiO2 21 Capillary Refill : Less Than 3 Seconds General Appearance: no apparent distress HEENT: PERRL/EOMI, normal ENT inspection Neck: non-tender, full range of motion Respiratory: chest non-tender, no respiratory distress, no accessory muscle use Cardiovascular: regular rate, rhythm Gastrointestinal: non tender, soft, no organomegaly, no pulsatile mass Rectal: deferred, other (left buttock with slight induration around opening in skin no fluctance, evidence of recent drainage) Back: normal inspection, no CVA tenderness Extremities: non-tender, normal inspection Neurologic/Psychiatric: electrotyper apprentice II-XII nml as tested, no motor/sensory deficits, alert, normal mood/affect, oriented x 3 Skin: normal color, warm/dry Lymphatic: no adenopathy Data Review Labs Laboratory Tests 01/28/19 20:49: Glucometer 210H 01/28/19 20:50: White Blood Count 7.5, Red Blood Count 4.25L, Hemoglobin 13.0, Hematocrit 40, Mean Corpuscular Volume 94, Mean Corpuscular Hemoglobin 31, Mean Corpuscular Hemoglobin Concent 33, Red Cell Distribution Width 13.3, Platelet Count 245, Mean Platelet Volume 10.2, Neutrophils (%) (Auto) 68, Lymphocytes (%) (Auto) 20, Monocytes (%) (Auto) 6, Eosinophils (%) (Auto) 6, Basophils (%) (Auto) 0, Neutrophils # (Auto) 5.1, Lymphocytes # (Auto) 1.5, Monocytes # (Auto) 0.4, Eosinophils # (Auto) 0.4H, Basophils # (Auto) 0.0, Prothrombin Time 13.1, INR Comment 1.0, Activated Partial Thromboplast Time 26, D-Dimer 1.02H, Sodium Level 138, Potassium Level 4.1, Chloride Level 100, Carbon Dioxide Level 26, Anion Gap 12, Blood Urea Nitrogen 19H, Creatinine 0.91, Estimat Glomerular Filtration Rate > 60, BUN/Creatinine Ratio 21, Glucose Level 227H, Calcium Level 9.8, Corrected Calcium 9.6, Total Bilirubin 0.6, Aspartate Amino Transf (AST/SGOT) 21, Alanine Aminotransferase (ALT/SGPT) 28, Alkaline Phosphatase 131, Troponin I < 0.028, Total Protein 8.6H, Albumin 4.2 01/28/19 21:00: Urine Color YELLOW, Urine Clarity VERY CLOUDYH, Urine pH 5, Urine Specific [place] 1.020, Urine Protein 2+H, Urine Glucose (UA) NEGATIVE, Urine Ketones NEGATIVE, Urine Nitrite NEGATIVE, Urine Bilirubin NEGATIVE, Urine Urobilinogen NORMAL, Urine Leukocyte Esterase 3+H, Urine RBC (Auto) 3+H, Urine RBC 0-2, Urine WBC 25-50H, Urine Squamous Epithelial Cells 5-10, Urine Crystals NONE, Urine Bacteria LARGEH, Urine Casts NONE, Urine Mucus NEGATIVE, Urine Culture Indicated YES 01/28/19 21:57: Lactic Acid Level 2.21*H 01/28/19 23:45: Lactic Acid Level 2.33*H 01/29/19 03:25: Lactic Acid Level 1.93, White Blood Count 6.9, Red Blood Count 3.95L, Hemoglobin 11.9, Hematocrit 38, Mean Corpuscular Volume 95, Mean Corpuscular Hemoglobin 30, Mean Corpuscular Hemoglobin Concent 32, Red Cell Distribution Width 13.2, Platelet Count 213, Mean Platelet Volume 9.9, Neutrophils (%) (Auto) 65, Lymphocytes (%) (Auto) 22, Monocytes (%) (Auto) 7, Eosinophils (%) (Auto) 6, Basophils (%) (Auto) 0, Neutrophils # (Auto) 4.5, Lymphocytes # (Auto) 1.6, Monocytes # (Auto) 0.5, Eosinophils # (Auto) 0.4H, Basophils # (Auto) 0.0, Sodium Level 138, Potassium Level 4.4, Chloride Level 105, Carbon Dioxide Level 23, Anion Gap 10, Blood Urea Nitrogen 18, Creatinine 0.79, Estimat Glomerular Filtration Rate > 60, BUN/Creatinine Ratio 23, Glucose Level 177H, Calcium Level 9.1, Corrected Calcium 9.4, Total Bilirubin 0.3, Aspartate Amino Transf (AST/SGOT) 20, Alanine Aminotransferase (ALT/SGPT) 24, Alkaline Phosphatase 111, Total Protein 7.2, Albumin 3.6, Triglycerides Level 261H, Cholesterol Level 236H , LDL Cholesterol Direct 171H, VLDL Cholesterol 52H, HDL Cholesterol 34L Assessment/Plan Assessment/Plan Assessment/Plan left buttock abscess/cyst drained currently okay to ca home will follow up outpatient any worsening be seen at that time. Clinical Quality Measures DVT/VTE Risk/Contraindication: Risk Factor Score Per Nursin RFS Level Per Nursing on Admit: 4+=Very High LAURA BROOKS DO Jan 29, 2019 15:57
[2019-01-29] MEDS ORDERED: cefTRIAXone 1,000 MG/SWFI 10 ML IV PUSH IV SCH ×2 (21:00)
== END 2019-01-29 14:05 | disposition home or self-care (01) | DRG 690 ==
LOC: ER 20:41 → 4TH 22:42
PROVIDERS: ADMIT Family Medicine; ATTEND Family Medicine
DX: N30.00 Acute cystitis without hematuria (principal); L02.31 Cutaneous abscess of buttock; E11.9 Type 2 diabetes mellitus without complications; I10 Essential (primary) hypertension; G43.909 Migraine, unspecified, not intractable, without status migrainosus; G40.909 Epilepsy, unspecified, not intractable, without status epilepticus; L72.9 Follicular cyst of the skin and subcutaneous tissue, unspecified; E78.5 Hyperlipidemia, unspecified; W57.XXXA Bitten or stung by nonvenomous insect and other nonvenomous arthropods, initial encounter; Z87.891 Personal history of nicotine dependence; Z79.84 Long term (current) use of oral hypoglycemic drugs; Z88.2 Allergy status to sulfonamides
CPT/HCPCS: 36415; 70450; 71045; 80053; 80061; 81000; 82962; 83605; 84484; 85025; 85379; 85610; 85730; 86618; 86666; 86668; 86757; 87040; 87070; 87088; 87205; 93005; 93041; 94760

== ENCOUNTER 2019-02-27 06:18 | Outpatient (CLI) | payer BC ==
[~2019-02-27] VITALS: Ht 157.5 cm; Wt 86.6 kg
[~2019-02-27 06:18] MED LIST: ATOR20TA66 PO; CEFD300C3 PO; IBUP-2055 PO; LISI10TA2 PO; METF-399 PO
[2019-02-27] MEDS ORDERED: CYAN-23 PO (11:14)
[2019-02-27] MEDS ORDERED: ATOR20TA66 PO (11:14)
== END 2019-02-27 11:56 | disposition home or self-care (01) ==
LOC: PREOP 06:18
PROVIDERS: ATTEND Surgery
DX: Z01.818 Encounter for other preprocedural examination (principal)

== ENCOUNTER 2019-03-06 06:09 | Day surgery (SDC) | payer BC ==
[~2019-03-06] VITALS: Ht 162.6 cm; Wt 88.0 kg
[2019-03-06] VITALS (10 sets, daily range): BP systolic 145–184; BP diastolic 69–89
[~2019-03-06 06:09] MED LIST changes: +CYAN-23 PO
--- OUTSIDE RECORDS SUMMARY | 2019-03-06 06:14 | XMS REPORT | Continuity of Care Document ---
Author Organization Unknown Address Unknown Phone Unavailable Allergies There is no data. Medications There is no data. Problems There is no data. Procedures There is no data. Results Test Result Range TSH w/ FREE T4 - 02/08/19 10:30 TSH 1.71 mIU/L 0.40-4.50 T4, FREE 1.2 ng/dL 0.8-1.8 VITAMIN B12 - 02/08/19 10:30 VITAMIN B12 438 pg/mL 200-1100 Encounters ACCT No. Visit Date/Time Discharge Status Pt. Type Provider Facility Loc./Unit Complaint [id number] 02/08/2019 10:00:00 02/08/2019 23:59:59 [facility] [id number] 02/08/2019 10:00:00 Document Registration
[2019-03-06] MEDS ORDERED: ceFAZolin 2 GM/50 ML NS 50 ML ONE (06:33)
[2019-03-06] MEDS ORDERED: ceFAZolin INJECTION 1,000 MG in WATER (STERILE) FOR INJECTION 10 ML IV ONE (06:45)
[2019-03-06] MEDS ORDERED: BUP/EPI 0.5% 1:200,000 (MARCAINE) 10ML VIAL IJ ONE (07:00)
[2019-03-06] MEDS ORDERED: CATHETER FLUSH 10 ML SYR IV PRN (07:00)
[2019-03-06] MEDS ORDERED: ANCEF 2 GM/NS 50 ML IVPB IV ONE (07:00)
[2019-03-06] MEDS: LACTATED RINGERS 1,000 ML IV PRN ×2 (07:01→09:08)
[2019-03-06] MEDS ORDERED: LIDOCAINE PF 2% 5 ML (XYLOCAINE) VIAL ONE (07:02)
[2019-03-06] MEDS ORDERED: ONDANSETRON 4 MG/2 ML (SDV) Z0FRAN ONE (07:02)
[2019-03-06] MEDS ORDERED: proPOfol 200 MG/20 ML (DIPRIVAN) VIAL IV ONE (07:02)
[2019-03-06] MEDS ORDERED: MIDAZOLAM 2 MG/2 ML (VERSED) VIAL ONE (07:05)
[2019-03-06] MEDS ORDERED: fentaNYL INJECTION 100 MCG/2 ML AMP ONE (07:05)
--- NOTE | 2019-03-06 07:51 | Progress Note-Pre Operative ---
Pre-Operative Progress Note H&P Reviewed The H&P was reviewed, patient examined and no changes noted. Date Seen by Provider: Mar 06, 2019 Time Seen by Provider: 07:30 Date H&P Reviewed: Mar 06, 2019 Time H&P Reviewed: 07:30 Pre-Operative Diagnosis: left buttock cyst LAURA BROOKS DO Mar 06, 2019 07:51
[2019-03-06] MEDS ORDERED: SEVOFLURANE (ULTANE) 15 ML INHAL SOLN ONE (08:52)
[2019-03-06] MEDS ORDERED: ROCURONIUM 10 MG/ML 5 ML SYRINGE IV ONE (08:52)
--- NOTE | 2019-03-06 09:01 | Progress Note-Post Operative ---
Post-Operative Progess Note Surgeon (s)/Assistant Director Of Plant Operations (s) Surgeon LAURA BROOKS DO Assistant Director Of Plant Operations: na Pre-Operative Diagnosis left buttock cyst Post-Operative Diagnosis same Procedure & Operative Findings Date of Procedure 03/06/19 Procedure Performed/Findings excision left buttock cyst 10x 5cm Anesthesia Type gen Estimated Blood Loss Estimated blood loss (mL): min Specimens/Packing Specimens Removed skin, cyst and subcutaneous tissue LAURA BROOKS DO Mar 06, 2019 09:01
[2019-03-06] MEDS ORDERED: ACHD5005 PO (09:03)
--- NOTE | 2019-03-06 09:10 | Discharge Inst-Simple/Standard ---
Discharge Inst-Standard Discharge Medications New, Converted or Re-Newed RX: RX on Chart Patient Instructions/Follow Up Plan of Care/Instructions/FU: 12-14 days Yara Activity as Tolerated: Yes Discharge Diet: Regular Diet Other Inst to Patient Follow up Appt: Make appointment for 12-14 days. Instructions: No lifting greater than 10 pounds. No strenuous activity. May shower in 24 hours, no tub bath or soaking. Use incentive spirometer at home as directed. No Smoking Skin/Wound Care: May remove bandages and change dressing every 24 hours and as needed. Keep area clean and dry. Symptoms to Report: Appetite Changes, Extremity Discoloration, Numbness/Tingling, Swelling Increased, Bleeding Excessive, Eyesight Changes, Pain Increased, Urine Color Change, Constipation(Persistent), Fever over 101 degree F, Pain/Pressure in chest, Urinating Difficulty, Cough Up/Vomit Blood, Heart Beat Irreg/Pounding, Pain/Pressure in jaw, Vaginal Bleeding Increase, Cramps in feet or legs, Lightheadedness, Pain/Pressure in shoulder, Diarrhea(Persistent), Memory Changes Suddenly, Questions/Concerns, Weight gain consecutive days, Dizziness/Fainting, Nausea/Vomiting, Shortness of Breath, Weight gain over 2 pounds If questions or concerns contact your physician Or seek help at emergency department. LAURA BROOKS DO Mar 06, 2019 09:10
[2019-03-06] MEDS ORDERED: fentaNYL INJECTION 100 MCG/2 ML AMP IVP ONE (09:30)
[2019-03-06] MEDS ORDERED: morphine INJ 10 MG/ML 1ML (SYR OR VIAL) IVP ONE (09:30)
[2019-03-06] MEDS ORDERED: ONDANSETRON 4 MG/2 ML (SDV) Z0FRAN IVP PRN (09:30)
--- NOTE | 2019-03-06 10:50 | OPERATIVE REPORT ---
DATE OF SERVICE: 03/06/2019 PREOPERATIVE DIAGNOSIS: Left buttock cyst. POSTOPERATIVE DIAGNOSIS: Left buttock cyst. PROCEDURE: Excision of left buttock cyst 10 x 5 cm. SURGEON: Laura Livingston DO ANESTHESIA: General. ESTIMATED BLOOD LOSS: Minimal. COMPLICATIONS: None. SPECIMENS: Skin cyst and subcutaneous tissue. INDICATION: The patient is a 64-year-old female, who has had recurrent cysts of the left buttock. She discussed risks and benefits of procedure and wished to proceed with procedure. Consent was signed in the chart. DESCRIPTION OF THE PROCEDURE: The patient was taken to the operating suite, was placed in left lateral recumbent position. After general anesthetic was provided, an endotracheal tube was placed. A timeout was performed. An incision was made around the palpable cyst, removing an area of 10 x 5 cm of skin cyst and subcutaneous tissue. Once removed, the wound was then irrigated and hemostasis was achieved. The skin was then closed using 2-0 Prolene in vertical mattress fashion. The area was washed and dried and sterile bandages were applied. The patient tolerated the procedure well without any complications. She was taken to recovery room in stable condition. Job ID: [id number] DocumentID: [id number] Dictated Date: 03/06/2019 09:12:43 Agriscience Instructor Date: 03/06/2019 10:50:10 Dictated By: LAURA LIVINGSTON DO
--- NOTE | 2019-03-06 13:59 | Anesthesia-General Post-Op ---
General Patient Condition Mental Status/LOC: Same as Preop Cardiovascular: Satisfactory Nausea/Vomiting: Absent Respiratory: Satisfactory Pain: Controlled Complications: Absent Post Op Complications Complications None Follow Up Care/Instructions Patient Instructions None needed. Anesthesia/Patient Condition Patient Condition Patient was seen this morning after the procedure and she was doing well, no complaints, stable vital signs, no apparent adverse anesthesia problems. JOSUE MANDUJANO DO Mar 06, 2019 13:59
== END 2019-03-06 11:10 | disposition home or self-care (01) ==
LOC: SDC 06:09
PROVIDERS: ATTEND Surgery
DX: L02.31 Cutaneous abscess of buttock (principal); E78.5 Hyperlipidemia, unspecified; G43.909 Migraine, unspecified, not intractable, without status migrainosus; E11.9 Type 2 diabetes mellitus without complications; E66.9 Obesity, unspecified; I10 Essential (primary) hypertension; R56.9 Unspecified convulsions; Z68.34 Body mass index [BMI] 34.0-34.9, adult; Z88.1 Allergy status to other antibiotic agents; Z88.2 Allergy status to sulfonamides; Z79.84 Long term (current) use of oral hypoglycemic drugs; Z79.899 Other long term (current) drug therapy; Z87.891 Personal history of nicotine dependence; Z79.891 Long term (current) use of opiate analgesic; Z90.89 Acquired absence of other organs; Z82.3 Family history of stroke; Z83.3 Family history of diabetes mellitus; Z82.49 Family history of ischemic heart disease and other diseases of the circulatory system
CPT/HCPCS: 82962; 87081; 88305

== ENCOUNTER → 2021-04-13 | Outpatient (CLI) | payer MEDICARE, MEDICAID ==
[~2021-04-13] MED LIST changes: +ACHD5005 PO; -IBUP-2055 PO; +IBUP-2473 PO; -LISI10TA2 PO; +LISI10TA25 PO
[2021-04-13 13:54] LABS: ALBUMIN 3.9 GM/DL (3.2-4.5); BILIRUBIN,TOTAL 0.3 MG/DL (0.1-1.0); CALCIUM 9.2 MG/DL (8.5-10.1); CREATININE SERUM 0.6 MG/DL (0.60-1.30); POTASSIUM 4.7 MMOL/L (3.6-5.0); TOTAL PROTEIN 7.8 GM/DL (6.4-8.2)
== END ==
LOC: LAB FS 12:00
PROVIDERS: ATTEND Family Medicine
DX: E11.9 Type 2 diabetes mellitus without complications (principal)
CPT/HCPCS: 36415; 80053; 80061; 82043; 83036

== ENCOUNTER → 2021-05-19 | Outpatient (CLI) | payer MEDICARE, MEDICAID ==
[2021-05-19 14:30] LABS: EOSINOPHILS % (AUTO) 7 % (0-10); HEMATOCRIT 37 % (35-52); HEMOGLOBIN 11.7 g/dL (11.5-16.0); LYMPHOCYTES % (AUTO) 16 % (12-44); MEAN CORPUSCULAR HEMOGLOBIN 30 pg (25-34); MEAN CORPUSCULAR HGB CONC 32 g/dL (32-36); MEAN CORPUSCULAR VOLUME 94 fL (80-99); MEAN PLATELET VOLUME 9.7 fL (9.0-12.2); MONOCYTES % (AUTO) 6 % (0-12); NEUTROPHILS % (AUTO) 70 % (42-75); PLATELET COUNT 312 10^3/uL (130-400); WHITE BLOOD COUNT 8.4 10^3/uL (4.3-11.0)
[2021-05-19 14:31] LABS: BASOPHILS % (AUTO) 0 % (0-10); EOSINOPHILS # (AUTO) 0.6 10^3/uL (0.0-0.3); LYMPHOCYTES # (AUTO) 1.4 X 10^3 (1.0-4.0); MONOCYTES # (AUTO) 0.5 X 10^3 (0.0-1.0); NEUTROPHILS # (AUTO) 5.9 X 10^3 (1.8-7.8)
== END ==
LOC: LAB FS 05-18 14:59
PROVIDERS: ATTEND Family Medicine
DX: M79.605 Pain in left leg (principal)
CPT/HCPCS: 36415; 85025; 85379

== ENCOUNTER → 2021-05-21 | Outpatient (CLI) | payer MEDICARE, MEDICAID ==
--- NOTE | 2021-05-21 11:12 | Diagnostic Imaging Report ---
PROCEDURE: US left lower extremity venous. TECHNIQUE: Multiple real-time grayscale images were obtained over the left lower extremity in various projections. Additional duplex Doppler and color Doppler images were also obtained. INDICATION: Left lower extremity swelling and pain. COMPARISON: None. FINDINGS: The visualized deep and superficial venous systems are patent. There is no DVT. IMPRESSION: Negative left lower extremity venous Doppler. Dictated by: Dictated on workstation # [id number]
== END ==
LOC: RAD 08:00
PROVIDERS: ATTEND Family Medicine
DX: R60.0 Localized edema (principal)

== ENCOUNTER → 2021-07-15 | Outpatient (CLI) | payer MEDICARE, MEDICAID ==
--- NOTE | 2021-07-15 09:52 | Diagnostic Imaging Report ---
INDICATION: Shortness of breath on exertion. TIME OF EXAM: 9:45 AM Correlation is made with prior chest from 01/28/2019. Heart size normal. There are some patchy infiltrates in both lung bases suggestive of pneumonia. There is no effusion. The mid and upper lung jones are clear. Pulmonary vascularity is normal. There is no pneumothorax. IMPRESSION: Patchy bibasilar pulmonary infiltrates consistent with pneumonia. Dictated by: Dictated on workstation # [id number]
== END ==
LOC: RAD FS 09:24
PROVIDERS: ATTEND Family Medicine
DX: R91.8 Other nonspecific abnormal finding of lung field (principal); R06.02 Shortness of breath
CPT/HCPCS: 71046

== ENCOUNTER → 2021-07-19 | Outpatient (CLI) | payer MEDICARE, MEDICAID | LOC: CARD 11:00 | PROVIDERS: ATTEND Family Medicine | DX: I34.8 Other nonrheumatic mitral valve disorders (principal) | CPT/HCPCS: 93306 ==

== ENCOUNTER → 2022-03-29 | Outpatient (CLI) | payer MEDICARE, MEDICAID ==
--- NOTE | 2022-03-29 16:03 | Diagnostic Imaging Report ---
INDICATION: Shortness of breath PA and lateral chest Heart size and pulmonary vascularity are normal. Lungs are clear. There are no effusions or pneumothoraces. IMPRESSION: No acute abnormalities in the chest. Dictated by: Dictated on workstation # [id number]
== END ==
LOC: RAD 10:57
PROVIDERS: ATTEND Internal Medicine Critical Care Medicine
DX: R06.00 Dyspnea, unspecified (principal); R06.02 Shortness of breath
CPT/HCPCS: 71046; 94621

== ENCOUNTER → 2022-05-03 | Outpatient (CLI) | payer MEDICARE, MEDICAID ==
[~2022-05-03] MED LIST changes: +RT-ALBUTEROL SULF 2.5 MG/3 ML PRE-MIX VIAL INH ONE
== END ==
LOC: RT 09:55
PROVIDERS: ATTEND Internal Medicine Critical Care Medicine
DX: R06.00 Dyspnea, unspecified (principal)
CPT/HCPCS: 94060; 94726; 94729

== ENCOUNTER → 2022-05-24 | Outpatient (CLI) | payer MEDICARE, MEDICAID ==
[~2022-05-24] MED LIST changes: -RT-ALBUTEROL SULF 2.5 MG/3 ML PRE-MIX VIAL INH ONE
== END ==
LOC: RT 09:45
PROVIDERS: ATTEND Internal Medicine Critical Care Medicine
DX: J44.9 Chronic obstructive pulmonary disease, unspecified (principal); J98.8 Other specified respiratory disorders
CPT/HCPCS: 94621

== ENCOUNTER 2023-05-27 22:25 | Emergency (ER) | payer MEDICARE, MEDICAID ==
[~2023-05-27] VITALS: Ht 160 cm; Wt 72.5 kg
--- NOTE | 2023-05-27 22:46 | ED Neurological Problem ---
General Stated Complaint: VOMITING|DIZZY History of Present Illness Date Seen by Provider: May 27, 2023 Time Seen by Provider: 22:45 Initial Comments 68-year-old female with PMH of DM2/hypertension/HLD/emphysema, is here with complaints of sudden onset of dizziness, nausea, and vomiting which began around 8:30 PM tonight, while she was talking to her family. Patient feels more dizzy when she stands up or sits up. Patient ate dinner and had waffles and sausage, which she tolerated well at the time. Denies fever and chills, abdominal pain, chest pain, shortness of breath, palpitations, dysuria, hematuria, headache, neck pain, blurry vision. No known sick contacts. Allergies and Home Medications Allergies Coded Allergies: sulfamethoxazole (Verified Allergy, Unknown, 01/29/19) trimethoprim (Verified Allergy, Unknown, 01/29/19) Uncoded Allergies: fluoroquinolone (Allergy, Unknown, Nausea, 02/27/19) Patient Home Medication List Home Medication List Reviewed: Yes Atorvastatin Calcium (Atorvastatin Calcium) 20 Mg Tablet, 20 MG PO DAILY, (Reported) Entered as Reported by: JASON HATHAWAY on 02/27/19 1114 Cyanocobalamin (Vitamin B-12) (Vitamin B-12) 1,000 Mcg Capsule, 1,000 MCG PO DAILY, (Reported) Entered as Reported by: JASON HATHAWAY on 02/27/19 1114 Hydrocodone Bit/Acetaminophen (Lortab 5 Mg Tablet) 1 Tab Tab, 1 TAB PO Q4-6HR Prescribed by: LAURA BROOKS on 03/06/19 0903 Lisinopril (Lisinopril) 10 Mg Tablet, 10 MG PO DAILY, (Reported) Entered as Reported by: ISRA LAUREN on 01/29/19 1020 Meclizine HCl (Meclizine HCl) 25 Mg Tablet, 25 MG PO TID Prescribed by: KATHERIN SAM MD on 05/28/23 0030 Metformin HCl (Metformin HCl) 1,000 Mg Tablet, 1,000 MG PO BID, (Reported) Entered as Reported by: ISRA LAUREN on 01/29/19 1020 Ondansetron (Ondansetron Odt) 4 Mg Tab.rapdis, 4 MG SL Q4H PRN for NAUSEA/VOMITING Prescribed by: KATHERIN SAM MD on 05/28/23 0030 Review of Systems Review of Systems Constitutional: see HPI, dizziness Gastrointestinal: nausea, vomiting Psychiatric/Neurological: Tingling Past Xonzvma-Cqnwvz-Dnqjfq Hx Seasonal Allergies Seasonal Allergies: No Past Medical History Surgeries: Yes (wisdom teeth) Appendectomy Respiratory: No Cardiac: Yes Hypertension Neurological: Yes ("Migraine seizures") Headaches /Migraines Genitourinary: No Gastrointestinal: No (cyst on buttocks) Musculoskeletal: No Endocrine: Yes Diabetes, Non-Insulin dep HEENT: No Cancer: No Psychosocial: No Integumentary: No Blood Disorders: No Family Medical History COPD, Diabetes Physical Exam Vital Signs Vital Signs - First Documented 05/27/23 22:45 Temp 37.0 Pulse 99 Resp 18 B/P (MAP) 143/102 (116) Pulse Ox 92 O2 Delivery Room Air Capillary Refill : Height, Weight, BMI Height: 5'4.00" Weight: 194lbs. 0.0oz. 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, no motor/sensory deficits, alert, normal mood/affect, oriented x 3 Crainal Nerves: normal hearing, normal speech, PERRL Coordination/Gait: normal finger to nose, normal gait, negative Romberg's sign Motor/Sensory: no motor deficit, no sensory deficit, no pronator drift, negative Babinski's sign Skin: normal color Progress/Results/Core Measures Results/Orders Lab Results Laboratory Tests Test 05/27/23 23:05 05/27/23 23:15 05/28/23 00:10 Range/Units White Blood Count 8.4 4.3-11.0 10^3/uL Red Blood Count 3.75 L 3.80-5.11 10^6/uL Hemoglobin 11.4 L 11.5-16.0 g/dL Hematocrit 36 35-52 % Mean Corpuscular Volume 97 80-99 fL Mean Corpuscular Hemoglobin 30 25-34 pg Mean Corpuscular Hemoglobin Concent 31 L 32-36 g/dL Red Cell Distribution Width 13.5 10.0-14.5 % Platelet Count 318 130-400 10^3/uL Mean Platelet Volume 9.4 9.0-12.2 fL Immature Granulocyte % (Auto) 1 % Neutrophils (%) (Auto) 71 42-75 % Lymphocytes (%) (Auto) 17 12-44 % Monocytes (%) (Auto) 6 0-12 % Eosinophils (%) (Auto) 5 0-10 % Basophils (%) (Auto) 1 0-10 % Neutrophils # (Auto) 6.0 1.8-7.8 10^3/uL Lymphocytes # (Auto) 1.4 1.0-4.0 10^3/uL Monocytes # (Auto) 0.5 0.0-1.0 10^3/uL Eosinophils # (Auto) 0.4 H 0.0-0.3 10^3/uL Basophils # (Auto) 0.0 0.0-0.1 10^3/uL Immature Granulocyte # (Auto) 0.1 0.0-0.1 10^3/uL Sodium Level 137 135-145 MMOL/L Potassium Level 4.1 3.6-5.0 MMOL/L Chloride Level 97 L 98-107 MMOL/L Carbon Dioxide Level 28 21-32 MMOL/L Anion Gap 12 5-14 MMOL/L Blood Urea Nitrogen 18 7-18 MG/DL Creatinine 0.79 0.60-1.30 MG/DL Estimat Glomerular Filtration Rate 82 BUN/Creatinine Ratio 23 Glucose Level 204 H 70-105 MG/DL Calcium Level 10.2 H 8.5-10.1 MG/DL Corrected Calcium 10.0 8.5-10.1 MG/DL Magnesium Level 1.5 L 1.6-2.4 MG/DL Total Bilirubin 0.4 0.1-1.0 MG/DL Aspartate Amino Transf (AST/SGOT) 17 5-34 U/L Alanine Aminotransferase (ALT/SGPT) 10 0-55 U/L Alkaline Phosphatase 124 40-136 U/L Troponin I < 0.30 <0.30 NG/ML Total Protein 8.5 H 6.4-8.2 GM/DL Albumin 4.2 3.2-4.5 GM/DL Influenza Type A (RT-PCR) Not Detected Not Detecte Influenza Type B (RT-PCR) Not Detected Not Detecte SARS-CoV-2 RNA (RT-PCR) Not Detected Not Detecte Urine Color YELLOW Urine Clarity CLEAR Urine pH 6.0 5-9 Urine Specific Guild 1.015 L 1.016-1.022 Urine Protein TRACE H NEGATIVE Urine Glucose (UA) NEGATIVE NEGATIVE Urine Ketones NEGATIVE NEGATIVE Urine Nitrite NEGATIVE NEGATIVE Urine Bilirubin NEGATIVE NEGATIVE Urine Urobilinogen 0.2 < = 1.0 MG/DL Urine Leukocyte Esterase NEGATIVE NEGATIVE Urine RBC (Auto) NEGATIVE NEGATIVE Urine RBC 5-10 H /HPF Urine WBC 10-25 H /HPF Urine Squamous Epithelial Cells 25-50 H /HPF Urine Crystals NONE /LPF Urine Bacteria FEW H /HPF Urine Casts NONE /LPF Urine Mucus NEGATIVE /LPF Urine Culture Indicated NO Urine Opiates Screen NEGATIVE NEGATIVE Urine Oxycodone Screen NEGATIVE NEGATIVE Urine Methadone Screen NEGATIVE NEGATIVE Urine Propoxyphene Screen NEGATIVE NEGATIVE Urine Barbiturates Screen NEGATIVE NEGATIVE Ur Tricyclic Antidepressants Screen NEGATIVE NEGATIVE Urine Phencyclidine Screen NEGATIVE NEGATIVE Urine Amphetamines Screen NEGATIVE NEGATIVE Urine Methamphetamines Screen NEGATIVE NEGATIVE Urine Benzodiazepines Screen NEGATIVE NEGATIVE Urine Cocaine Screen NEGATIVE NEGATIVE Urine Cannabinoids Screen NEGATIVE NEGATIVE My Orders Orders - KATHERIN SAM MD Ct Head/Cervical Spine Wo (05/27/23 23:00) Ondansetron Injection (Ondansetron Inj (05/27/23 23:15) Cbc And Automated Diff (05/27/23 23:03) Comprehensive Metabolic Panel (05/27/23 23:03) Drug Screen Stat (Urine) (05/27/23 23:03) Lactic Acid Analyzer (05/27/23 23:03) Magnesium (05/27/23 23:03) Ua Culture If Indicated (05/27/23 23:03) Troponin I Fs (05/27/23 23:03) Influenza A And B By Pcr (05/27/23 23:04) Covid 19 Inhouse Test (05/27/23 23:04) Promethazine Injection (Promethazine I (05/28/23 00:15) Meclizine Tablet (Meclizine Tablet) (05/28/23 00:15) Rx-Ondansetron Po (Rx-Zofran Po) (05/28/23 00:30) Rx-Ondansetron Po (Rx-Zofran Po) (05/28/23 00:42) Ct Angio Head/Neck (05/28/23 00:57) Chest 1 View Ap/Pa Only (05/28/23 00:57) Continuous Ekg Monitoring (05/28/23 00:58) Ekg Tracing (05/28/23 00:58) Ns Iv 1000 Ml (Ns Iv 1000 Ml) (05/28/23 00:56) Basic Metabolic Panel (05/28/23 00:58) Fibrin Degradation Products (05/28/23 00:58) Protime With Inr (05/28/23 00:58) Partial Thromboplastin Time (05/28/23 00:58) Probnp Fs (05/28/23 00:58) Troponin I Fs (05/28/23 00:58) Ipratropium/Albuterol Inh Soln (Ipratrop (05/28/23 01:00) Svn Small Volume Nebulizer (05/28/23 00:59) Medications Given in ED Current Medications Medications Dose Ordered Sig/Idania Route Start Time Stop Time Status Last Admin Dose Admin Meclizine HCl 25 mg ONCE ONCE PO 05/28/23 00:15 05/28/23 00:16 DC 05/28/23 00:33 25 MG Ondansetron HCl 4 mg ONCE ONCE IVP 05/27/23 23:15 05/27/23 23:16 DC 05/27/23 23:13 4 MG Promethazine HCl 25 mg ONCE ONCE IVP 05/28/23 00:15 05/28/23 00:16 DC 05/28/23 00:33 25 MG Vital Signs/I&O 05/27/23 05/28/23 22:45 00:16 Temp 37.0 Pulse 99 89 93 92 Resp 18 B/P (MAP) 143/102 (116) 159/87 (111) 165/80 (108) 127/97 (107) Pulse Ox 92 O2 Delivery Room Air Progress Progress Note : Progress Note 1. BENIGN PAROXYSMAL POSITIONAL VERTIGO: - CT HEAD & NECK: no acute findings - CBC/ CMP: unremarkable - Lipase negative - Troponin undetectable - UA/UDS: negative for infection - COVID test/ Rapid flu test: negative - Zofran iv STAT - Phenergan iv and Meclizine 25 mg STAT - Prescription given for Meclizine 25mg tid, as needed for dizziness. Advised not to drive while taking this medication - Zofran prescription and take home pack, to be taken every 6 hours as needed for dizziness - Follow up with ENT within 7 days, Dr Tejeda; call to make appointment. - Orthostatic: negative -The patient was seen in the ED, and treated appropriately to presentation at a specific point in time. Patient is informed that there is a possibility that disease and illness can evolve and change in acuity rapidly or slowly after patient is discharged from the ER. Precautionary advice given to the patient for immediate return to ER if symptoms worsen or do not resolve, and to seek emergency care sooner rather than later. Pt also advised on the importance of P CP follow up and compliance with management and follow up plan with PCP and/or specialist, as this is part of the management plan. Pt verbally expressed understanding. 2. MEDICATION SIDE EFFECT: - Pt developed syncope and hypotension almost as soon as she received the Phenergan and Meclizine. Tiffany due to giving both only few minutes apart - EKG is NSR - CXR is normal - Pt was put in bed and NS IVF bolus initiated immediately, O2 NC 3L ( Pt should be on 2L at home but she does not use it much because the tubing gets tangled) - Improvement of vitals with these measures - Neuro exam did not show any neurological deficits - Nausea and vomiting stopped - Pt kept in ER and monitored for an hour and half, and pt improved , with stable vitals, AOx3, and dizziness and vomiting resolved. - Advised not to take Phenergan in the future Initial ECG Impression Date: May 28, 2023 Initial ECG Impression Time: 01:02 Initial ECG Rate: 85 Initial ECG Rhythm: Normal Sinus Initial ECG Intervals: Normal Initial ECG Impression: Normal Initial ECG Comparisson: No Previous ECG Available Diagnostic Imaging Diagonstic Imaging: CT Plain Films/CT/US/NM/MRI: c-spine, head Comments [facility] [place], [place] NAME: NEL TREJO MED REC#: [id number] PT STATUS: REG ER : 1955 PHYSICIAN: KATHERIN SAM MD ADMIT DATE: 05/27/23/ER FS Signed Date of Exam:05/27/23 CT HEAD/CERVICAL SPINE WO PROCEDURE: CT head and CT cervical spine without contrast. TECHNIQUE: Multiple contiguous axial images were obtained through the brain and cervical spine without the use of intravenous contrast. Sagittal and coronal reformations through the cervical spine were then performed. Auto Exposure Controls were utilized during the CT exam to meet ALARA standards for radiation dose reduction. INDICATION: Dizziness, nausea vomiting CT HEAD: There is decreased density in the paravertebral white matter both hemispheres. This was present on previous CT from 01/28/2019. There are no masses or hemorrhages. There are no extra-axial fluid collections. IMPRESSION: Chronic ischemic leukoencephalopathy. No acute abnormality seen CT cervical spine: Vertebral body height and alignment appear normal. There is mild degenerative disc changes at C5-C6, C6-C7 and C7-T1. There is no fracture. IMPRESSION: Degenerative changes of the discs of the lower cervical spine. No acute abnormality seen. Dictated by: Dictated on workstation # [id number] Dict: 05/27/232338 Trans: 05/27/232340 TC [id number] Interpreted by: SANDRA RAMSEY MD Electronically signed by: SANDRA RAMSEY MD 05/27/232340 Departure Impression Primary Impression: Benign paroxysmal positional vertigo Additional Impression: Medication side effect Disposition: 01 HOME, SELF-CARE Condition: Improved Departure-Patient Inst. Referrals: MARY WILLETT MD (PCP/Family) Primary Care Physician LORNE TEJEDA Patient Instructions: Vertigo (a Type of Dizziness) (DC), Vestibular Exercises, Adverse Drug Reactions, Adult ED Add. Discharge Instructions: - Prescription given for Meclizine 25mg tid, as needed for dizziness. Advised not to drive while taking this medication - Zofran prescription and take home pack, to be taken every 6 hours as needed for dizziness - Follow up with ENT within 7 days, Dr Tejeda; call to make appointment. - In the future, do not take Phenergan Scripts Ondansetron (Ondansetron Odt) 4 Mg Tab.rapdis 4 MG SL Q4H PRN for NAUSEA/VOMITING for 5 Days, #20 TAB Prov: KATHERIN SAM MD 05/28/23 Meclizine HCl (Meclizine HCl) 25 Mg Tablet 25 MG PO TID for Dizziness for 7 Days, #14 TAB Prov: KATHERIN SAM MD 05/28/23 KATHERIN SAM MD May 27, 2023 22:46
[2023-05-27 23:13] LABS: BASOPHILS % (AUTO) 1 % (0-10); EOSINOPHILS # (AUTO) 0.4 10^3/uL (0.0-0.3); EOSINOPHILS % (AUTO) 5 % (0-10); HEMATOCRIT 36 % (35-52); HEMOGLOBIN 11.4 g/dL (11.5-16.0); LYMPHOCYTES # (AUTO) 1.4 10^3/uL (1.0-4.0); LYMPHOCYTES % (AUTO) 17 % (12-44); MEAN CORPUSCULAR HEMOGLOBIN 30 pg (25-34); MEAN CORPUSCULAR HGB CONC 31 g/dL (32-36); MEAN CORPUSCULAR VOLUME 97 fL (80-99); MEAN PLATELET VOLUME 9.4 fL (9.0-12.2); MONOCYTES # (AUTO) 0.5 10^3/uL (0.0-1.0); MONOCYTES % (AUTO) 6 % (0-12); NEUTROPHILS % (AUTO) 71 % (42-75); PLATELET COUNT 318 10^3/uL (130-400); WHITE BLOOD COUNT 8.4 10^3/uL (4.3-11.0)
[2023-05-27] MEDS ORDERED: ONDANSETRON INJECTION 4 MG/2 ML (SDV) IVP ONE (23:15)
[2023-05-27 23:27] LABS: CHLORIDE 97 MMOL/L (98-107); POTASSIUM 4.1 MMOL/L (3.6-5.0); SODIUM 137 MMOL/L (135-145)
[2023-05-27 23:28] LABS: BILIRUBIN,TOTAL 0.4 MG/DL (0.1-1.0); CALCIUM 10.2 MG/DL (8.5-10.1); MAGNESIUM 1.5 MG/DL (1.6-2.4)
[2023-05-27 23:36] LABS: ALANINE AMINOTRANSFERASE 10 U/L (0-55); ALBUMIN 4.2 GM/DL (3.2-4.5); ALKALINE PHOSPHATASE 124 U/L (40-136); BUN/CREATININE RATIO 23; CARBON DIOXIDE 28 MMOL/L (21-32); CREATININE SERUM 0.79 MG/DL (0.60-1.30); GFR ESTIMATED 82; GLUCOSE 204 MG/DL (70-105); TOTAL PROTEIN 8.5 GM/DL (6.4-8.2)
--- NOTE | 2023-05-27 23:43 | Diagnostic Imaging Report ---
PROCEDURE: CT head and CT cervical spine without contrast. TECHNIQUE: Multiple contiguous axial images were obtained through the brain and cervical spine without the use of intravenous contrast. Sagittal and coronal reformations through the cervical spine were then performed. Auto Exposure Controls were utilized during the CT exam to meet ALARA standards for radiation dose reduction. INDICATION: Dizziness, nausea vomiting CT HEAD: There is decreased density in the paravertebral white matter both hemispheres. This was present on previous CT from 01/28/2019. There are no masses or hemorrhages. There are no extra-axial fluid collections. IMPRESSION: Chronic ischemic leukoencephalopathy. No acute abnormality seen CT cervical spine: Vertebral body height and alignment appear normal. There is mild degenerative disc changes at C5-C6, C6-C7 and C7-T1. There is no fracture. IMPRESSION: Degenerative changes of the discs of the lower cervical spine. No acute abnormality seen. Dictated by: Dictated on workstation # [id number]
[2023-05-28] MEDS ORDERED: PROMETHAZINE INJ 25 MG/ML VIAL IVP ONE (00:15)
[2023-05-28] MEDS ORDERED: MECLIZINE 25 MG TABLET PO ONE (00:15)
[2023-05-28 00:16] VITALS: BP_SYST 127; BP_SYST 159; BP_SYST 165; BP_DIAS 80; BP_DIAS 87; BP_DIAS 97
[2023-05-28] MEDS ORDERED: MECL-291 PO (00:30)
[2023-05-28] MEDS ORDERED: ONDA4TAB11 SL (00:30)
[2023-05-28] MEDS ORDERED: RX-ONDANSETRON 4 MG ODT (ZOFRAN) PPK #4 PO PRN (00:30)
[2023-05-28 00:38] LABS: BILIRUBIN,URINE NEGATIVE (NEGATIVE); CLARITY,URINE CLEAR; COLOR,URINE YELLOW; GLUCOSE, URINE (UA) NEGATIVE (NEGATIVE); KETONES,URINE NEGATIVE (NEGATIVE); LEUKOCYTE ESTERASE ,URINE NEGATIVE (NEGATIVE); NITRITE,URINE NEGATIVE (NEGATIVE); PROTEIN,URINE TRACE (NEGATIVE)
[2023-05-28 00:41] LABS: BACTERIA,URINE FEW /HPF; SQUAMOUS EPITHELIAL CELL,UR 25-50 /HPF
[2023-05-28] MEDS ORDERED: RX-ONDANSETRON 4 MG ODT (ZOFRAN) PPK #4 ONE (00:42)
[2023-05-28 00:48] LABS: AMPHETAMINE SCREEN, URINE NEGATIVE (NEGATIVE); BARBITURATE SCREEN URINE NEGATIVE (NEGATIVE); CANNABINOID SCREEN, URINE NEGATIVE (NEGATIVE); COCAINE SCREEN URINE NEGATIVE (NEGATIVE); METHADONE STAT NEGATIVE (NEGATIVE); OPIATE SCREEN URINE NEGATIVE (NEGATIVE); OXYCODONE STAT NEGATIVE (NEGATIVE); PROPOXYPHENE STAT NEGATIVE (NEGATIVE); TRICYCLIC ANTIDEPRESSANTS SCRE NEGATIVE (NEGATIVE)
[2023-05-28] MEDS ORDERED: NS IV 1000 ML 1,000 ML ONE (00:56)
[2023-05-28] MEDS ORDERED: RT-Ipratropium/Albuterol NEB 3 ML VIAL INH ONE (01:00)
[2023-05-28 01:19] LABS: INR 0.9 (0.8-1.4); PROTHROMBIN TIME PATIENT 12.4 SEC (12.2-14.7)
[2023-05-28 01:27] LABS: FIBRIN DEGRADATION PRODUCTS 0.71 UG/ML (0.00-0.49)
--- NOTE | 2023-05-28 06:24 | Diagnostic Imaging Report ---
INDICATION: Follow-up syncope. COMPARISON: 03/29/2022. DISCUSSION: Single portable upright view of the chest was obtained. Low lung volumes. Normal heart size. No consolidation, pleural fluid, or pneumothorax. No osseous abnormality. IMPRESSION: 1. Negative chest. Dictated by: Dictated on workstation # [id number]
== END 2023-05-28 02:00 | disposition home or self-care (01) ==
LOC: EDUNIT# 22:25 → ER FS 22:26
DX: H81.10 Benign paroxysmal vertigo, unspecified ear (principal); R11.2 Nausea with vomiting, unspecified; T42.6X5A Adverse effect of other antiepileptic and sedative-hypnotic drugs, initial encounter; T45.0X5A Adverse effect of antiallergic and antiemetic drugs, initial encounter; Z20.822 Contact with and (suspected) exposure to COVID-19
CPT/HCPCS: 36415; 70450; 71045; 72125; 80053; 80306; 81000; 83735; 84484; 85025; 85379; 85610; 85730; 87636; 93005; 96361; 96374; 96375

== ENCOUNTER → 2023-07-10 | Outpatient (CLI) | payer MEDICARE, MEDICAID ==
[~2023-07-10] MED LIST changes: +MECL-291 PO; +ONDA4TAB11 SL
== END | disposition home or self-care (01) ==
LOC: PREOP 05:28
PROVIDERS: ATTEND Obstetrics & Gynecology
DX: Z01.818 Encounter for other preprocedural examination (principal)